=== PATIENT | male | born 1995 | race Caucasian/White ===

== ENCOUNTER 2024-03-10 11:03 | Emergency (ER) | payer SELFPAY ==
[2024-03-10 11:06] VITALS: BP 134/86; PULSE 115; TEMP 37.1; O2SAT 100; BMI 21.8
[2024-03-10 11:13] VITALS: O2SAT 99
[2024-03-10 11:50] LABS: Basophils Percent Auto 0.4 % (0.2-2.0); Eosinophils Absolute Auto 0.1 10^3/uL (0.0-0.7); Eosinophils Percent Auto 0.6 % (0.9-7.0); Hematocrit 44.9 % (42.0-54.0); Hemoglobin 15.9 g/dL (14.0-18.0); Immature Granulocytes Abs Auto 0.03 10^3/uL (0.00-0.03); Immature Granulocytes Pct Auto 0.4 % (0.0-0.5); Lymphocytes Absolute Auto 1.9 10^3/uL (1.2-3.8); Lymphocytes Percent Auto 21.9 % (20.5-60.0); Mean Corpuscular HGB Conc 35.4 g/dL (29.9-35.2); Mean Corpuscular Hemoglobin 32.1 pg (25.9-34.0); Mean Corpuscular Volume 90.5 fL (80.0-94.0); Mean Platelet Volume 11.2 fL (9.5-13.5); Monocytes Absolute Auto 0.5 10^3/uL (0.3-0.8); Monocytes Percent Auto 5.4 % (1.7-12.0); Neutrophils Absolute Auto 6.1 10^3/uL (1.4-6.5); Neutrophils Percent Auto 71.3 % (43.0-75.0); Platelet Count 260 10^3/uL (150-450); Red Blood Count 4.96 10^6/uL (4.70-6.10); Red Cell Distribution Width 11.8 % (11.0-15.0); White Blood Count 8.5 10^3/uL (4.0-11.0)
--- NOTE | 2024-03-10 12:01 | ED.GENADUL1 ---
HPI HPI - General Adult General Chief complaint: Neck Pain/Injury Stated complaint: NECK PAIN/ STIFFNESS Time Seen by Provider: 03/10/24 11:04 Source: patient Mode of arrival: walk-in History of Present Illness HPI narrative: Patient presents ED complaining of pain around his neck and some burning feeling in his upper chest. He has been dealing with some dental issues, dental caries and infections. He had his 2 front teeth pulled Friday and states that is actually feeling better but then he had some neck pain that started prior to the tooth pulling. He was concerned about potentially an infection spreading for meningitis so he came into the ER. He does not have a fever here his heart rate is slightly elevated but he does admit to being anxious. No trismus no drooling. Patient has no neck stiffness on exam. Patient does report he has been feeling anxious because he does not have medical insurance and he has been off his anxiety medication. He is supposed to be taking Zoloft and lamotrigine and Xanax. He has been out of that for some time because he has no insurance. He is trying to get set up with Medicaid. He states his teeth feel better now that they are removed and he really has had no pain in his jaw. Related Data Allergies Allergy/AdvReac Type Severity Reaction Status Date / Time No Known Drug Allergies Allergy Verified 03/10/24 11:10 Opioid HPI Opioid Management Most Recent Opioid Data: Last Pain Scale 4 03/10/24 11:10 Review of Systems ROS Status of ROS 10 or more systems reviewed and unremarkable except as noted in history and below [facility] Medical History (Updated 03/10/24 @ 12:32 by Babs Mccullough DO) SVT (supraventricular tachycardia) ?I47.10 - Supraventricular tachycardia, unspecified (ICD-10) Surgical History (Updated 03/10/24 @ 11:15 by Whit Linton) H/O tooth extraction ?K08.409 - Partial loss of teeth, unspecified cause, unspecified class (ICD-10) Exam Narrative Exam Narrative: General: alert, no acute distress Cardiovascular: regular rate and rhythm, normal peripheral perfusion. Respiratory: Lungs CTA, respirations non labored. Extremities: no deformity, no trauma. Neurological: oriented x 4, LOC appropriate for age. Dental extraction site is well-appearing no abscess. No trismus no drooling. No tongue elevation. Neck is soft and supple. No cervical lymphadenopathy no nuchal rigidity. No photophobia. Constitutional Vital Signs, click to edit/add: Last Vital Signs Temp 98.8 F 03/10/24 11:06 Pulse 101 H 03/10/24 12:40 Resp 18 03/10/24 12:40 BP 134/86 03/10/24 11:06 Pulse Ox 99 03/10/24 12:40 O2 Del Method Room Air 03/10/24 11:13 Course Vital Signs Vital signs: Vital Signs Temperature 98.8 F 03/10/24 11:06 Pulse Rate 115 H 03/10/24 11:06 Respiratory Rate 20 03/10/24 11:06 Blood Pressure 134/86 03/10/24 11:06 Pulse Oximetry 100 03/10/24 11:06 Oxygen Delivery Method Room Air 03/10/24 11:06 Temperature 98.8 F 03/10/24 11:06 Pulse Rate 101 H 03/10/24 12:40 Respiratory Rate 18 03/10/24 12:40 Blood Pressure 134/86 03/10/24 11:06 Pulse Oximetry 99 03/10/24 12:40 Oxygen Delivery Method Room Air 03/10/24 11:13 Medical Decision Making MDM Narrative Medical decision making narrative: Patient's labs show a low potassium which was replaced orally here. Patient does report that his p.o. intakes been a little decreased because of his dental issues recently. Chest x-ray clear and shows him metallic object which is his GERD implant device. Patient is aware that it is there. No acute findings other candelario on x-ray or labs. No signs of meningitis or sepsis. Patient stable for discharge. Differential Diagnosis Differential Diagnosis: Meningitis, dental infection, dental abscess Medical Records Medical records reviewed: Yes I reviewed the patient's medical records Lab Data Lab results reviewed: Yes I reviewed the patient's lab results Labs: Lab Results 03/10/24 Range/Units 11:44 WBC 8.5 (4.0-11.0) 10^3/uL RBC 4.96 (4.70-6.10) 10^6/uL Hgb 15.9 (14.0-18.0) g/dL Hct 44.9 (42.0-54.0) % MCV 90.5 (80.0-94.0) fL MCH 32.1 (25.9-34.0) pg MCHC 35.4 H (29.9-35.2) g/dL RDW 11.8 (11.0-15.0) % Plt Count 260 (150-450) 10^3/uL MPV 11.2 (9.5-13.5) fL Neut % (Auto) 71.3 (43.0-75.0) % Lymph % (Auto) 21.9 (20.5-60.0) % [place] % (Auto) 5.4 (1.7-12.0) % Eos % (Auto) 0.6 L (0.9-7.0) % Baso % (Auto) 0.4 (0.2-2.0) % Neut # (Auto) 6.1 (1.4-6.5) 10^3/uL Lymph # (Auto) 1.9 (1.2-3.8) 10^3/uL [place] # (Auto) 0.5 (0.3-0.8) 10^3/uL Eos # (Auto) 0.1 (0.0-0.7) 10^3/uL Baso # (Auto) 0.0 (0.0-0.1) 10^3/uL Abs Immat Gran (auto) 0.03 (0.00-0.03) 10^3/uL Imm/Tot Granulo (auto) 0.4 (0.0-0.5) % Sodium 138 (136-145) mmol/L Potassium 3.2 L (3.5-5.1) mmol/L Chloride 101 (98-107) mmol/L Carbon Dioxide 26.5 (21.0-32.0) mmol/L Anion Gap 13.7 BUN 14.0 (7.0-18.0) mg/dL Creatinine 0.78 (0.70-1.30) mg/dL Est GFR ( Amer) >60 (>=60) Est GFR (Non-Af Amer) >60 (>=60) BUN/Creatinine Ratio 17.9 Glucose 78 (74-106) mg/dL Calcium 9.5 (8.5-10.1) mg/dL Total Bilirubin 1.1 H (0.2-1.0) mg/dL AST 12 L (15-37) U/L ALT 13 L (16-63) U/L Alkaline Phosphatase 62 (46-116) U/L Total Protein 7.8 (6.4-8.2) g/dL Albumin 4.8 (3.4-5.0) g/dL Globulin 3.0 g/dL Albumin/Globulin Ratio 1.6 Imaging Data Chest x-ray: Radiologist's impression: ITS Impressions Chest X-Ray 03/10/24 12:06 IMPRESSION: 1. No acute cardiopulmonary process. 2. Metallic foreign body projecting over epigastric region of uncertain etiology. Please correlate. Electronically authenticated by: KIRSTIN MINA Date: 03/10/2024 12:23 Discharge Plan Discharge Chief Complaint: Neck Pain/Injury Clinical Impression: Strain of neck muscle, Dental caries Patient Disposition: Home, Self-Care Time of Disposition Decision: 12:32 Condition: Good Mode of Transportation: Private Vehicle Print Language: Telugu Instructions: Cervical Sprain (ED), Tooth Extraction (DC) Referrals: [facility] [Primary Care Provider] - 1 week
--- NOTE | 2024-03-10 12:06 | XR_ITS ---
The [address] [address] Patient Name: SCARLET HERBERT MRN: [id number] date: 1995 Sex: M Assigned Patient Location: ER Current Patient Location: ER Accession/Order Number: [id number] Exam Date: 03/10/2024 12:01 Report Date: 03/10/2024 12:23 At the request of: RENÉ LAROSE Procedure: XR chest 1V EXAMINATION: XR chest 1V HISTORY: cp COMPARISON: No relevant comparison available. FINDINGS: LUNGS: No significant pulmonary parenchymal abnormalities. VASCULATURE: No increased pulmonary vasculature. PLEURA: No pneumothorax, effusion, or pleural thickening. CARDIAC: No cardiomegaly or cardiac silhouette abnormality. MEDIASTINUM: No visible mass or adenopathy. BONES: No fracture or visible bone lesion. OTHER: Metallic foreign body projecting over epigastric region. XR/XR chest 1V IMPRESSION: 1. No acute cardiopulmonary process. 2. Metallic foreign body projecting over epigastric region of uncertain etiology. Please correlate. Electronically authenticated by: KIRSTIN MINA Date: 03/10/2024 12:23
[2024-03-10 12:08] LABS: Alanine Aminotransferase 13 U/L (16-63); Albumin Globulin Ratio 1.6; Albumin Level 4.8 g/dL (3.4-5.0); Alkaline Phosphatase 62 U/L (46-116); Anion Gap 13.7; Aspartate Amino Transferase 12 U/L (15-37); BUN Creatinine Ratio 17.9; Bilirubin Total 1.1 mg/dL (0.2-1.0); Calcium 9.5 mg/dL (8.5-10.1); Carbon Dioxide 26.5 mmol/L (21.0-32.0); Chloride 101 mmol/L (98-107); Estimated GFR (African America >60 (>=60); Estimated GFR (Non-African Ame >60 (>=60); Glucose 78 mg/dL (74-106); Potassium 3.2 mmol/L (3.5-5.1); Sodium 138 mmol/L (136-145); Total Protein 7.8 g/dL (6.4-8.2)
[2024-03-10 12:40] VITALS: PULSE 101; O2SAT 99
[2024-03-10] MEDS: POTASSIUM CHLORIDE 10 MEQ ER TABLET 20 MEQ PO (12:44)
== END 2024-03-10 12:57 | disposition home or self-care (01) ==
PROVIDERS: Emergency Provider Emergency Medicine
DX: S16.1XXA Strain of muscle, fascia and tendon at neck level, initial encounter (principal); K02.9 Dental caries, unspecified; E87.6 Hypokalemia; X58.XXXA Exposure to other specified factors, initial encounter
CPT/HCPCS: 36415; 71045; 80053; 85025; 99284